=== PATIENT | female | born 1960 | race Caucasian/White ===

== ENCOUNTER 2017-05-20 19:13 | Emergency (ER) | payer OTHER ==
[2017-05-20] MEDS ORDERED: Tetracaine 0.5% OPHTH SOLN/PF 4 ML BOT ONE (19:25)
== END 2017-05-20 19:52 | disposition home or self-care (01) ==
LOC: MADERS 19:13
DX: Z03.89 Encounter for observation for other suspected diseases and conditions ruled out (principal)
CPT/HCPCS: 99283

== ENCOUNTER 2022-09-09 23:55 | Emergency (ER) | payer OTHER ==
[2022-09-10] MEDS ORDERED: Ibuprofen 800 MG TAB ONE (00:23)
== END 2022-09-10 00:41 | disposition home or self-care (01) ==
LOC: MADERS 23:55
DX: M79.641 Pain in right hand (principal); Z87.891 Personal history of nicotine dependence